=== PATIENT | female | born 1945 | race Caucasian/White ===

== ENCOUNTER → 2016-08-20 | Outpatient (CLI) | payer MEDICARE ==
--- NOTE | 2016-08-23 08:19 | MRI ---
EXAM DESCRIPTION: Brain w/oContrast CLINICAL HISTORY: 70 years,Female,ATAXIC GAIT COMPARISON: None TECHNIQUE: MRI performed multiple sequences of the brain without contrast. FINDINGS: There is no abnormal extra-axial fluid collection. No mass effect. Bear-white matter differentiation demonstrates moderate increased T2 signal change in the periventricular white matter. And punctate areas in the mathew radiata. There is a small area about 4 mm in size in the left periventricular white matter which is increased in diffusion but also increase in ADC mapping suggesting its T2 shine through rather than acute. Sulcation and ventricles mild ex vacuo dilatation of ventricles. Sulcation age appropriate. No mass effect. Diffusion demonstrates no other evidence of acute findings.. The included paranasal sinuses are unremarkable. The mastoid air cells are unremarkable. IMPRESSION: Moderate periventricular chronic ischemic changes and nonspecific T2 white matter changes. But no acute findings. Electronically signed by: Geoff Yo MD 08/23/2016 8:18 AM CDT
== END ==
LOC: MRI 13:11
PROVIDERS: ATTEND Family Medicine
DX: R26.0 Ataxic gait (principal)

== ENCOUNTER → 2016-10-21 | Outpatient (CLI) | payer MEDICARE | END | disposition home or self-care (01) | LOC: GMAJ 10:20 | PROVIDERS: ATTEND Family Medicine | DX: I10 Essential (primary) hypertension (principal) ==

== ENCOUNTER → 2016-11-04 | Outpatient (CLI) | payer MEDICARE ==
--- NOTE | 2016-11-05 10:35 | RAD ---
EXAM DESCRIPTION: UGI Small Bowel CLINICAL HISTORY: K21.9. Celiac disease. Increased belching. COMPARISON: [None] TECHNIQUE: The patient swallowed barium pill and water under fluoroscopic visualization. Patient then swallowed gas-producing granules, and water, and heavy-density barium under fluoroscopic visualization. Patient also drank medium-density barium through a straw, prone position. The images were obtained with the patient upright and horizontal. After the contrast was seen in the duodenum, additional images were obtained of the abdomen supine, until contrast was seen in the proximal colon. Fluoroscopy was performed with manual compression. Additional images were obtained with compression and patient supine. 9 cine loops were recorded. 15 fluoroscopic images taken. Fluoroscopy time was 2.4 minutes. Cumulative dose: 62.55 mGy. FINDINGS: No laryngeal aspiration was noted. No coughing. No mass effect on the esophagus. No significant mucosal lesions. Small sliding hiatal hernia. Significant gastroesophageal reflux almost to the level of the thoracic inlet. No mass effect on the stomach. No significant mucosal lesions. No mass effect on the duodenum. No significant mucosal lesions. Surgical clips in the right upper quadrant. No small bowel obstruction. No fixed or dilated loops. Terminal ileum is unremarkable. IMPRESSION: 1. Significant gastroesophageal reflux in the supine position. Small sliding hiatal hernia. 2. Stomach and duodenum otherwise unremarkable. 3. Small bowel is negative. Electronically signed by: Nelson Zayas MD 11/05/2016 10:34 AM CDT
== END ==
LOC: RAD 14:13
PROVIDERS: ATTEND Family Medicine
DX: K21.9 Gastro-esophageal reflux disease without esophagitis (principal); K44.9 Diaphragmatic hernia without obstruction or gangrene

== ENCOUNTER 2017-04-09 10:16 | Emergency (ER) | payer MEDICARE ==
[2017-04-09 10:31] VITALS: TEMP 98.4
--- NOTE | 2017-04-09 11:06 | RAD ---
EXAM: Frontal and lateral chest X-ray's obtained. CLINICAL INDICATION: syncope COMPARISON: Chest x-ray from 01/19/2014. Report unavailable at the time of dictation. FINDINGS: There is no focal airspace consolidation, pleural effusion, or pneumothorax. The cardiomediastinal silhouette and pulmonary vasculature appear within normal limits. Visualized osseous structures appear intact and grossly unremarkable, given the nondedicated imaging. Surgical clips project over the right upper quadrant of the abdomen. IMPRESSION: No radiographic evidence for acute cardiopulmonary disease process. Electronically signed by: Quinn Onofre MD 04/09/2017 11:05 AM [facility] Workstation: [id number]
--- NOTE | 2017-04-09 11:08 | RAD ---
Three views of the left wrist obtained. INDICATION: Syncope. COMPARISON: None. FINDINGS: There is an acute mildly displaced and angulated fracture of the distal left ulna with approximately one cortex width volar and radial displacement of the distal fracture fragment. Remaining visualized osseous structures appear intact and well aligned. Bone mineralization appears within normal limits. Joint spaces appear preserved. IMPRESSION: Mildly displaced and angulated fracture of the distal left ulna. Could consider dedicated forearm radiographs to ensure no fracture of the radius as part of a ring fracture, as indicated. Electronically signed by: Quinn Onofre MD 04/09/2017 11:07 AM [facility] Workstation: [id number]
--- NOTE | 2017-04-09 11:43 | ED.PDOC ---
History of Present Illness - General Chief Complaint: Syncope/Near Syncope Time Seen by Provider: 04/09/17 10:30 Source: patient Exam Limitations: no limitations - History of Present Illness Initial Comments: the patient is a 71-year-old female presenting to the emergency room secondary to a syncopal episode. She has been feeling somewhat fatigued and her has been ill for the last 4-5 days as well. She's had a mild runny nose and a mild cough. No real nausea or vomiting but her oral intake has not been as good as normal. She does not know if she had any fevers. She passed out while she was walking to her bed this morning and fell and seemed to hit her bilateral distal forearm on the ulnar side on a trash can. She does have some bruising and mild swelling there. She moves with elbow and wrist well. She moves the hand well. She is alert and oriented. No evidence of any head trauma. No pain elsewhere. Timing/Duration: unsure Severity: moderate Improving Factors: nothing Worsening Factors: nothing Associated Symptoms: cough, malaise Allergies/Adverse Reactions: Allergies NO KNOWN ALLERGY Allergy (Unverified 01/19/14 19:58) Home Medications: Ambulatory Orders Lisinopril 5 mg PO DAILY 01/19/14 Pantoprazole Tablet [Protonix] 40 mg PO DAILY 01/19/14 Oseltamivir Capsule [Tamiflu] 75 mg PO BID 5 Days #10 capsule 04/09/17 Review of Systems - Review of Systems Constitutional: States: malaise, weakness EENTM: States: no symptoms reported Respiratory: States: no symptoms reported Cardiology: States: no symptoms reported, syncope Gastrointestinal/Abdominal: States: no symptoms reported Genitourinary: States: no symptoms reported Musculoskeletal: States: see HPI Skin: States: no symptoms reported Neurological: States: no symptoms reported Endocrine: States: no symptoms reported All other Systems: No Change from Baseline Past Medical History (General) - Patient Medical History Hx Asthma: No Hx of COPD: No Hx Cardiac Disorders: Yes - heart murmur, mitral valve prolapse Hx Congestive Heart Failure: No Hx Hypertension: Yes Hx Diabetes: No Hx Cancer: No Hx Hepatitis C: No - Vaccination History Hx Influenza Vaccination: Yes - Social History Hx Tobacco Use: No Hx Alcohol Use: No - Female History Patient : No Family Medical History - Family History Mother Family History: Unknown Physical Exam - Physical Exam General Appearance: Alert, No apparent distress Eye Exam: bilateral normal Ears, Nose, Throat: hearing grossly normal, normal pharynx, nasal congestion Neck: full range of motion, supple Respiratory: lungs clear, normal breath sounds, no respiratory distress, no accessory muscle use Cardiovascular/Chest: normal peripheral pulses, regular rate, rhythm, no edema Peripheral Pulses: radial,right: 2+, radial,left: 2+, dorsalis pedis,right: 2+, dorsalis pedis,left: 2+ Gastrointestinal/Abdominal: non tender, soft Rectal Exam: deferred Back Exam: normal inspection, no CVA tenderness, no vertebral tenderness Extremity: normal range of motion, non-tender, normal inspection, no pedal edema , normal capillary refill 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 Tenderness to palpation over the area of bruising. Minimal deformity noted. She does appear to be neurovascularly intact distally. No laceration. Comments: Vital Signs - 24 hr 04/09/17 04/09/17 04/09/17 10:17 10:34 10:35 Temperature 98.4 F Pulse Rate [ 74 78 88 left brachial] Respiratory 20 Rate Blood Pressure 134/71 135/65 125/53 [left brachial] O2 Sat by Pulse 96 97 Oximetry Progress - Progress Progress: 04/09/17 11:44 the patient is a 71-year-old female presenting to the emergency room after a syncopal episode. The patient has turned up positive for the flu which she may have contracted from her . The patient will be started on Tamiflu twice daily for 5 days. She did receive a liter of IV fluids here. She needs to ambulate carefully to prevent further syncopal episodes. Additionally she did sustain a minimally displaced distal third ulnar fracture from the fall of the left arm. There is no evidence of any distal radius fracture. The decision has been made to place the patient in a lace up long wrist splint so that the patient can use her hand if absolutely needed to steady herself to prevent further injuries if she has any further near syncopal episodes. The patient is to follow-up with her primary care doctor or orthopedist of choice towards the end of this week for reevaluation and likely for casting and a repeat x-ray. She is neurovascularly intact at this time. ER warnings were given for any significant worsening. Lab work, EKG and chest x -ray as well as telemetry monitoring were reassuring. - Results/Orders Results/Orders: 04/09/17 10:31 Telemetry .CONTINUOUS shows normal sinus rhythm and no evidence of significant arrhythmia Vital Signs-Tilt PRN 04/09/17 10:45 EKG STAT EKG shows normal sinus rhythm at rate of 71 bpm. There is a normal axis. Normal R-wave progression. No acute ST segment changes concerning for ischemia. Normal QT interval. Laboratory Results - last 24 hr 04/09/17 04/09/17 10:11 10:11 WBC 9.6 RBC 4.39 Hgb 14.2 Hct 42.7 MCV 97.2 MCH 32.3 H MCHC 33.2 RDW 13.9 Plt Count 344 MPV 8.1 Absolute Neuts (auto) 6.60 Absolute Lymphs (auto) 2.00 Absolute Monos (auto) 0.70 Absolute Eos (auto) 0.20 Absolute Basos (auto) 0.10 Neutrophils % 68.5 Lymphocytes % 21.4 Monocytes % 6.8 Eosinophils % 2.4 Basophils % 0.9 Sodium 133 L Potassium 3.5 L Chloride 99 L Carbon Dioxide 25 Anion Gap 12.5 BUN 13 Creatinine 0.71 BUN/Creatinine Ratio 18.3 Random Glucose 126 H Serum Osmolality 268.0 L Calcium 9.1 Total Bilirubin 0.5 AST 25 ALT 24 Alkaline Phosphatase 46 Creatine Kinase 125 CK-MB (CK-2) 3.2 CK-MB (CK-2) % Not Reportable Troponin I < 0.02 B-Natriuretic Peptide 44.5 Serum Total Protein 6.9 Albumin 4.0 Globulin 2.9 Albumin/Globulin Ratio 1.4 TSH 2.86 chest x-ray shows no evidence of any acute pathology. No obvious infiltrates and no congestive heart failure. X-ray of the left wrist shows a minimally displaced fracture of the distal third ulna. No evidence of fracture of the distal radius. Departure - Departure Clinical Impression: Influenza Fracture, ulna, distal Qualifiers: Encounter type: initial encounter Fracture type: closed Fracture morphology: unspecified fracture morphology Laterality: left Qualified Code(s): S52.602A - Unspecified fracture of lower end of left ulna, initial encounter for closed fracture Syncope Qualifiers: Syncope type: unspecified Qualified Code(s): R55 - Syncope and collapse Disposition: Discharge to Home or Self Care Condition: Fair Departure Forms: ED Discharge - Pt. Copy, Patient Portal Self Enrollment Diet: regular diet Activity: no pushing/pulling with affected limb Referrals: Daniel Turcios MD [Primary Care Provider] - 1-5 Days Prescriptions: Oseltamivir Capsule [Tamiflu] 75 mg PO BID 5 Days #10 capsule Home Medications: Ambulatory Orders Lisinopril 5 mg PO DAILY 01/19/14 Pantoprazole Tablet [Protonix] 40 mg PO DAILY 01/19/14 Oseltamivir Capsule [Tamiflu] 75 mg PO BID 5 Days #10 capsule 04/09/17 Additional Instructions: the patient is a 71-year-old female presenting to the emergency room after a syncopal episode. The patient has turned up positive for the flu which she may have contracted from her . The patient will be started on Tamiflu twice daily for 5 days. She did receive a liter of IV fluids here. She needs to ambulate carefully to prevent further syncopal episodes. Additionally she did sustain a minimally displaced distal third ulnar fracture from the fall of the left arm. There is no evidence of any distal radius fracture. The decision has been made to place the patient in a lace up long wrist splint so that the patient can use her hand if absolutely needed to steady herself to prevent further injuries if she has any further near syncopal episodes. The patient is to follow-up with her primary care doctor or orthopedist of choice towards the end of this week for reevaluation and likely for casting and a repeat x-ray. She is neurovascularly intact at this time. ER warnings were given for any significant worsening. Lab work, EKG and chest x -ray as well as telemetry monitoring were reassuring.
[2017-04-09 13:05] VITALS: BP 144/77; O2SAT 95
== END 2017-04-09 13:00 | disposition home or self-care (01) ==
LOC: ER 10:16
DX: J11.1 Influenza due to unidentified influenza virus with other respiratory manifestations (principal); S52.602A Unspecified fracture of lower end of left ulna, initial encounter for closed fracture; R55 Syncope and collapse; I34.1 Nonrheumatic mitral (valve) prolapse; W19.XXXA Unspecified fall, initial encounter; Y92.003 Bedroom of unspecified non-institutional (private) residence as the place of occurrence of the external cause

== ENCOUNTER → 2017-04-15 | Outpatient (CLI) | payer MEDICARE ==
--- NOTE | 2017-04-18 08:25 | RAD ---
EXAM DESCRIPTION: Wrist,Left 3 Views CLINICAL HISTORY: M25.532 follow-up wrist fracture. COMPARISON: April 09, 2017 IMPRESSION: 3 views of the left wrist again demonstrate a spiral fracture involving the diaphysis of the distal ulna with minimal radial displacement of the distal fracture fragment. Alignment appears improved compared to previous exam. There is indistinctness of the fracture margins with probable early partial bridging callus formation along the ulnar aspect of the fracture line. Persistent lucency involving most of the mid to radial aspect of the fracture is noted consistent with incomplete bony union at this time. There is 4 mm of ulnar negative variance again noted. Electronically signed by: Awais Sommer MD 04/18/2017 8:24 AM [facility]
== END ==
LOC: RAD 08:43
PROVIDERS: ATTEND Orthopaedic Surgery
DX: S52.602A Unspecified fracture of lower end of left ulna, initial encounter for closed fracture (principal)

== ENCOUNTER → 2017-04-26 | Outpatient (CLI) | payer MEDICARE ==
--- NOTE | 2017-04-26 10:20 | RAD ---
EXAM DESCRIPTION: Wrist,Left 3 Views CLINICAL HISTORY: 71 years, Female, FX OF ULNA COMPARISON: None FINDINGS: Left wrist 3 x-ray views is positive for fracture of the distal left ulna involving distal diaphysis and metaphysis. There is oblique fracture with slight medial angulation of the distal fracture fragment. Mild overlap is noted without comminution. Compared to previous study angulation of the distal fragment has increased and the gap between the fracture fragments appears slightly greater on the lateral view. Bones of the carpus appear intact. Normal metacarpals.. IMPRESSION: Mildly increased angulation of the distal ulnar fracture fragment since previous study. Electronically signed by: Sharif Hayes MD 04/26/2017 10:19 AM [facility]
== END ==
LOC: RAD 08:54
PROVIDERS: ATTEND Orthopaedic Surgery
DX: S52.201D Unspecified fracture of shaft of right ulna, subsequent encounter for closed fracture with routine healing (principal)

== ENCOUNTER 2017-05-22 08:40 | Emergency (ER) | payer MEDICARE ==
--- NOTE | 2017-05-22 08:50 | ED.PDOC ---
History of Present Illness - General Chief Complaint: General Stated Complaint: high blood pressure Time Seen by Provider: 05/22/17 08:49 Source: patient Exam Limitations: no limitations - History of Present Illness Initial Comments: Antonette De 89 y/o female stated that she felt had rapid heartbeat on standing up this morning and elevated blood pressure.Denies any chest pains, headache ,feeling of passing out.Had her blood pressure medicine increased lisinopril 20 mg and additotal medication added amlodipine 5 mg qd.Bp taken ER [id number] -left arm;178 /107-right arm heart rate-93;156/104-sitting hr- 79.Stated had all his blood test last month w/c came back normal. Timing/Duration: 1-3 hours Severity: moderate Worsening Factors: nothing Associated Symptoms: denies symptoms Allergies/Adverse Reactions: Allergies wheat Allergy (Uncoded 05/22/17 09:09) Home Medications: Ambulatory Orders Lisinopril 5 mg PO DAILY 01/19/14 Pantoprazole Tablet [Protonix] 40 mg PO DAILY 01/19/14 Oseltamivir Capsule [Tamiflu] 75 mg PO BID 5 Days #10 capsule 04/09/17 Review of Systems - Review of Systems Constitutional: States: no symptoms reported EENTM: States: no symptoms reported Respiratory: States: no symptoms reported Cardiology: States: no symptoms reported Gastrointestinal/Abdominal: States: no symptoms reported Genitourinary: States: no symptoms reported Musculoskeletal: States: no symptoms reported Skin: States: no symptoms reported Neurological: States: no symptoms reported All other Systems: Reviewed and Negative, No Change from Baseline Past Medical History (General) - Patient Medical History Hx Asthma: No Hx of COPD: No Hx Cardiac Disorders: Yes - heart murmur, mitral valve prolapse Hx Congestive Heart Failure: No Hx Hypertension: Yes Hx Diabetes: No Hx Cancer: No Hx Hepatitis C: No Hx Other PMH: Yes - celiac disease Surgical History: cholecystectomy, other - left ankle orif - Vaccination History Hx Influenza Vaccination: Yes - Social History Hx Tobacco Use: No Hx Alcohol Use: No Hx Physical Abuse: No Hx Emotional Abuse: No - Female History Patient : No Family Medical History - Family History Mother Family History: Unknown Physical Exam - Physical Exam General Appearance: Alert, Comfortable, No apparent distress Eye Exam: bilateral normal Ears, Nose, Throat: hearing grossly normal, normal ENT inspection, normal pharynx Neck: non-tender, full range of motion, supple Respiratory: chest non-tender, lungs clear, normal breath sounds, no respiratory distress Cardiovascular/Chest: normal peripheral pulses, regular rate, rhythm, no murmur Peripheral Pulses: radial,right: 2+, radial,left: 2+ Gastrointestinal/Abdominal: normal bowel sounds, non tender, soft Back Exam: normal inspection, no CVA tenderness, no vertebral tenderness Extremity: normal range of motion, non-tender, no pedal edema, no calf tenderness Neurologic: alert, oriented x 3 Skin Exam: normal color, warm/dry Lymphatic: no adenopathy Progress - Progress Progress: 05/22/17 09:17 Vital Signs - 24 hr 05/22/17 05/22/17 08:47 08:50 Temperature 98.5 F 98.4 F Pulse Rate [ 85 pulse ox] Respiratory 18 Rate Blood Pressure 156/104 183/99 [Left Arm] Blood Pressure 178/107 [Right Arm] O2 Sat by Pulse 96 Oximetry - EKG/XRAY/CT EKG: Sinus, nonspecific ST T wave Chg Comments: Heart Rate-74 Departure - Departure Clinical Impression: Palpitations Hypertension Qualifiers: Hypertension type: unspecified Qualified Code(s): I10 - Essential (primary) hypertension Time of Disposition: 09:32 Disposition: Discharge to Home or Self Care Condition: Good Departure Forms: ED Discharge - Pt. Copy, Patient Portal Self Enrollment Instructions: Lifestyle Habits May Lower Risk of Hypertension in Women, High Blood Pressure, Hypertension (Alternative Therapy), DI for Palpitations Referrals: Daniel Turcios MD [Primary Care Provider] - 1-2 Weeks Home Medications: Ambulatory Orders Lisinopril 5 mg PO DAILY 01/19/14 Pantoprazole Tablet [Protonix] 40 mg PO DAILY 01/19/14 Oseltamivir Capsule [Tamiflu] 75 mg PO BID 5 Days #10 capsule 04/09/17 Additional Instructions: Keep appointment with primary Md 30 May 2017;Continue with all home medications;Return to emergency room as needed
[2017-05-22 09:09] VITALS: O2SAT 96
[2017-05-22 09:12] VITALS: TEMP 98.4
[2017-05-22 09:38] VITALS: BP 174/88
== END 2017-05-22 09:45 | disposition home or self-care (01) ==
LOC: ER 08:40
DX: R00.2 Palpitations (principal); I10 Essential (primary) hypertension; I34.1 Nonrheumatic mitral (valve) prolapse; R01.1 Cardiac murmur, unspecified; K90.0 Celiac disease

== ENCOUNTER → 2017-05-23 | Outpatient (CLI) | payer MEDICARE ==
--- NOTE | 2017-05-23 14:51 | RAD ---
EXAM DESCRIPTION: Wrist,Left 3 Views CLINICAL HISTORY: 71 years, Female, UNSPECIFIED FX OF SHAFT OF ULNA, LEFT COMPARISON: Previous study April 26, 2017 FINDINGS: Left wrist 3 x-ray views reveals oblique fracture through the distal ulna with no change in alignment of the fragments since previous study. Some callus formation has developed around the fracture site consistent with partial healing. Ulna minus variant is noted. Bones of the carpus are normally aligned. Distal radius appears intact. IMPRESSION: Healing fracture of the distal left ulna. Electronically signed by: Sharif Hayes MD 05/23/2017 2:50 PM CDT
== END ==
LOC: RAD 08:54
PROVIDERS: ATTEND Orthopaedic Surgery
DX: S52.202D Unspecified fracture of shaft of left ulna, subsequent encounter for closed fracture with routine healing (principal)

== ENCOUNTER → 2017-06-20 | Outpatient (CLI) | payer MEDICARE ==
--- NOTE | 2017-06-20 09:51 | RAD ---
EXAM DESCRIPTION: Wrist,Left 3 Views CLINICAL HISTORY: 71 years, Female, CLOSED FRACTURE OF ULNA COMPARISON: Previous study May 23, 2017 FINDINGS: Left wrist 3 x-ray views shows callus formation around healing fracture of the distal diaphysis of the left ulna. No change in alignment since previous study. Carpal relationships are well-maintained. Distal radius is intact. Normal metacarpals. No significant arthritic changes are observed. IMPRESSION: Healing fracture of the distal left ulna. Electronically signed by: Sharif Hayes MD 06/20/2017 9:49 AM CDT
== END ==
LOC: RAD 08:43
PROVIDERS: ATTEND Orthopaedic Surgery
DX: S52.202D Unspecified fracture of shaft of left ulna, subsequent encounter for closed fracture with routine healing (principal)

== ENCOUNTER → 2018-11-30 | Outpatient (CLI) | payer MEDICARE | LOC: GMAJ 10:19 | PROVIDERS: ATTEND Family Medicine | DX: E55.9 Vitamin D deficiency, unspecified (principal); I10 Essential (primary) hypertension ==

== ENCOUNTER → 2019-12-13 | Outpatient (CLI) | payer MEDICARE ==
--- NOTE | 2019-12-17 10:18 | MAM ---
EXAM DESCRIPTION: 3D Screening BILATERAL : Digital Mammography. CLINICAL HISTORY: 74 years Female ANNUAL SCREENING . No complaints. Mother with breast cancer age 60 years. Menarche age 15. No childbirth. Menopause age 40. Taking HRT. COMPARISON: Baseline study at this facility.. No prior reports available. TECHNIQUE: Bilateral CC and MLO projection full-field images, digital tomosynthesis mammographic technique. Bilateral digital 2-D full-field MLO images. CAD available for 2-D images. FINDINGS: The breast parenchymal density pattern is: Scattered areas of fibroglandular density. No skin thickening or nipple retraction. Solitary microcalcifications. Axillary and intramammary nodes. No focal, stellate mass or density, focal asymmetry , and no suspicious microcalcifications bilaterally. IMPRESSION: Benign exam. BIRAD CATEGORY: 2 BENIGN FINDINGS. RECOMMENDATIONS: FOLLOW UP: Routine digital bilateral mammographic screening, one year interval from December 2019. Written communication explaining the IMPRESSION and follow-up, will be mailed to the patient and referring health care provider According to the [employer], yearly mammograms are recommended starting at age 40 and continuing as long as a woman is in good health. Any breast change noted on a breast self-exam should be reported promptly to the patient's healthcare provider. Breast MRI is recommended for women with an approximately 20-25% or greater lifetime risk of breast cancer, including women with a strong family history of breast or ovarian cancer and women who have been treated for Hodgkin's disease. A negative mammographic report should not delay tissue diagnosis in patients with significant clinical history or physical findings. Extremely dense breast tissue limits the sensitivity of digital mammography. Electronically signed by: Nelson Zayas MD 12/17/2019 10:16 AM CDT
== END ==
LOC: MAMMO 11:00
PROVIDERS: ATTEND Family Medicine
DX: Z12.31 Encounter for screening mammogram for malignant neoplasm of breast (principal)